=== PATIENT | female | born 1980 | race Caucasian/White ===

== ENCOUNTER → 2017-10-15 | Outpatient (CLI) | payer BC ==
--- NOTE | 2017-10-15 14:24 | CT ---
CT abdomen and pelvis without contrast Indication: Lower back pain, hematuria Technique: Helical CT images of the abdomen and pelvis were obtained without IV contrast. Reformatted images in the coronal and sagittal planes were also generated for review. Comparison: None Findings: Lung bases are clear. No aggressive osseous lesions are identified. Within the limits of a noncontrast exam, the liver, gallbladder, spleen, pancreas and adrenals are un remarkable. There is mild left-sided hydronephrosis, secondary to a 9 mm stone within the left UPJ. A n additional 3 mm nonobstructing stone is present within the inferior left kidney. No additional radi opaque urinary tract stones or right-sided hydroureteronephrosis is identified. There is no bowel inflammation or obstruction. The appendix is normal. The IVC, abdominal aorta and u rinary bladder are normal. A 2.9 cm right ovarian cyst is noted. The unenhanced uterus and adnexa are otherwise grossly within normal limits. No free air, free fluid or lymphadenopathy is identified. Impression: Mild left-sided hydronephrosis, secondary to a 9 mm stone within the left UPJ. Additional 3 mm nonobstructing stone within the inferior left kidney. Reported By:
== END ==
LOC: RAD 13:34
PROVIDERS: ATTEND Nurse Practitioner Family
DX: M54.5 Low back pain (principal); N20.0 Calculus of kidney; R31.21 Asymptomatic microscopic hematuria; Z87.442 Personal history of urinary calculi
CPT/HCPCS: 74176

== ENCOUNTER → 2018-03-15 | Outpatient (CLI) | payer BC ==
--- NOTE | 2018-03-15 14:26 | CT ---
History: Right flank pain, hematuria Study: CT abdomen and pelvis without contrast Findings: [address] imaging is performed from above the diaphragms to below the pubic symphysis without oral or intravenous contrast. Coronal and sagittal reformatted images are submitted as well and comparison made to previous study of 10/15/2017. Lung bases are clear and there are no pleural ef fusions. The liver and spleen are normal in size and uniform in density. The pancreas, gallbladder, a drenal glands and kidneys appear anatomically normal. No renal or ureteral calculi are identified. La rge and small bowel and the appendix appear normal. A 2.8 cm low-density lesion in the right adnexal region is consistent with an ovarian cyst. No free fluid is seen. Impression: Probable right ovarian cyst. Reported By:
== END ==
LOC: RAD 14:00
PROVIDERS: ATTEND Urology
DX: R31.29 Other microscopic hematuria (principal); R10.84 Generalized abdominal pain
CPT/HCPCS: 74176

== ENCOUNTER → 2018-03-25 | Outpatient (CLI) | payer BC ==
--- NOTE | 2018-03-25 09:52 | US ---
HISTORY: Chronic right upper quadrant pain Study: Right upper quadrant abdominal ultrasound Comparison: CT 03/15/2018 Technique: Multiple owens scale and color flow Doppler images of the right upper quadrant were obtaine d. Findings: Liver parenchyma echotexture appears coarsened and slightly hyperechoic suggesting mild fatty infiltr ation. No focal intraparenchymal mass or intrahepatic biliary ductal dilatation is observed. No jenny dence of gallstones. The common bile duct measures 6 mm. No pericholecystic fluid or gallbladder wa ll thickening. No sonographic Ruano's sign reported. The right kidney appears normal in size without focal parenchymal mass or nephrolithiasis. The right kidney measures 13.6 x 6 x 6 cm. No evidence of hydronephrosis. The visualized portions of the rhodes creas are unremarkable. IMPRESSION: 1. Findings suggesting mild fatty infiltration of the liver. 2. Otherwise negative right upper quadrant ultrasound. Reported By:
== END ==
LOC: RAD 08:37
PROVIDERS: ATTEND Nurse Practitioner Family
DX: R10.11 Right upper quadrant pain (principal)
CPT/HCPCS: 76705

== ENCOUNTER 2020-10-26 20:56 | Inpatient (IN) ==
[2020-10-26 21:08] VITALS: BMI 38.4
[2020-10-26] MEDS ORDERED: DECADRON INJ PRESERVATIVE-FREE IVP ONE (21:22)
[2020-10-26] MEDS ORDERED: ZITHROMAX TAB 250 MG PO ONE ×2 (21:22→22:04)
[2020-10-26] MEDS ORDERED: PROVENTIL NEB TX 0.083% 2.5MG/ 3ML NEB ONE (21:32)
[2020-10-26] MEDS ORDERED: DUONEB 0.5 MG/3 MG (3 mL) NEB ONE (21:43)
[2020-10-26] MEDS ORDERED: PROVENTIL NEB TX 0.083% 2.5MG/ 3ML ONE (21:47)
--- NOTE | 2020-10-26 21:50 | RAD ---
PROCEDURE: Chest x-ray one-view.HISTORY: Upper back pain for 1 week with nausea, vomiting, diarrhea today. Hypoxia and fever.TECHNIQUE: AP view .COMPARISON: None .TECHNICAL QUALITY: Satisfactory .FINDINGS:Normal size heart.Mediastinum and hilar regions show no masses or lymphadenopathy.Normal central vascularity.Patchy consolidation throughout both lung pena consistent with pneumonia. No pleural fluid or pneumothorax.No acute bony abnormality.IMPRESSION:Bilateral pneumonia.Electronically signed by: Scott Michelle (Oct 26, 2020 21:48:43)
[2020-10-26 21:52] LABS: BASOPHILS % (AUTO) 0.3 % (0.2-1.0); EOSINOPHILS % (AUTO) 0.1 % (0.9-2.9); HEMATOCRIT 36.3 % (36.0-47.0); LYMPHOCYTES % (AUTO) 17.3 % (21.0-51.0); MEAN CORPUSCULAR HEMOGLOBIN 26.6 pg (27.0-34.0); MEAN CORPUSCULAR HGB CONC 33.1 g/dL (33.0-35.0); MEAN CORPUSCULAR VOLUME 80.3 fL (80.0-100.0); MEAN PLATELET VOLUME 7.2 fL (7.4-11.0); MONOCYTES # (AUTO) 0.3 x10^3/uL (0.3-0.8); MONOCYTES % (AUTO) 5.3 % (0.0-13.0); NEUTROPHILS # (AUTO) 4.3 x10^3/uL (2.2-4.8); PLATELET COUNT 267 X10^3/uL (150.0-450.0); RED BLOOD COUNT 4.53 X10^6/uL (3.5-5.4); RED CELL DISTRIBUTION WIDTH 16.1 % (11.6-16.5); WHITE BLOOD COUNT 5.5 X10^3/uL (3.6-10.0)
[2020-10-26] MEDS ORDERED: NS 1000 ML 1,000 ML IV ONE (21:56)
--- NOTE | 2020-10-26 22:03 | DR.SOBA ---
HPI Time Seen Time Seen by Provider: 10/26/20 21:21 Primary Care Physician Primary Care Physician: jl HPI Comment HPI Comment: Patient presents with complaint of worsening shortness of breath, N/V/D. Notes a COVID+ status and has been on "COVID cocktail" x 1 week. Initially was better, but took a turn on yesterday. Patient notes that she has not tolerated any po. Complaints Chief Complaint:: started last sunday (1 week ago). with uper back pain. now increased nausea vomiting and diarrhea all today. 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 temp up to 101.8 Self Treatment fo Chief Complaint: zofran COVID-19 Coronavirus risk:travel/contact w/high risk person: No Has patient experienced Coronavirus symptoms: No Source History Provided: Patient Mode of Arrival Mode of Arrival: Ambulatory Timing Onset of Chief Complaint: 10/19/20 PMH PMH Past Medical History: Yes Past Medical History: Hypothyroidism Past Surgical History: No Family History History of Family Medical Conditions: Yes Family Medical History: Diabetes Mellitus, Cancer, PR, Coronary Artery Disease and Hypertension Social History Type of Tobacco Use: None Alcohol Use: None Do you use any recreational Drugs:: No Lives With: Family Lives Where: Home Travel Risk Coronavirus risk:travel/contact w/high risk person: No Has patient experienced Coronavirus symptoms: No Infectious screening In the last 2 months have you had wt loss of >10#?: NO Have you had fever, night sweats or hemotysis?: No Have you traveled outside the country in the last 6 months?: No Isolation: Droplet ROS Review of Systems Constitutional: See HPI and Fatigue Respiratoy: Non-Productive Cough and Short of Breath Gastrointestinal/Abdominal: Diarrhea, Nausea and Vomiting All Other Systems: Reviewed and Negative PE Vital Signs Vitals: Temperature 98.6 F Pulse Rate [Left] 103 Pulse Rate 107 Respiratory Rate 22 Blood Pressure [Left Arm] 118/73 Blood Pressure 116/68 O2 Sat by Pulse Oximetry 97 General Limitations: No Limitations General Appearance: Alert and Other (unable to talk in complete sentences) Head Head Exam: Normal Inspection, Atraumatic and Normocephalic Neck Neck Exam: Normal Inspection and Trachea Midline Chest Chest Inspection: Normal Inspection Respiratory Respiratory Exam: Bilateral: Rhonchi Cardiovascular Cardiovascular Exam: Regular Rate, Normal Rhythm and Normal Heart Sounds Abdominal Exam Abdominal Exam: Normal Inspection COURSE Reevaluation 1st: Improved Consultation Call Returned: 23:55 Consultation Comments: Dr. Merritt accepts this patient for admission ROR Labs Reviewed Result Diagrams: 10/26/20 21:36 10/26/20 21:36 Laboratory: WBC 5.5 X10^3/uL (3.6-10.0) 10/26/20 21:36 RBC 4.53 X10^6/uL (3.5-5.4) 10/26/20 21:36 Hgb 12.0 g/dL (12.0-16.0) 10/26/20 21:36 Hct 36.3 % (36.0-47.0) 10/26/20 21:36 MCV 80.3 fL (80.0-100.0) 10/26/20 21:36 MCH 26.6 pg (27.0-34.0) L 10/26/20 21:36 MCHC 33.1 g/dL (33.0-35.0) 10/26/20 21:36 RDW 16.1 % (11.6-16.5) 10/26/20 21:36 Plt Count 267 X10^3/uL (150.0-450.0) 10/26/20 21:36 MPV 7.2 fL (7.4-11.0) L 10/26/20 21:36 Neut % (Auto) 77.0 % (42.0-75.0) H 10/26/20 21:36 Lymph % (Auto) 17.3 % (21.0-51.0) L 10/26/20 21:36 Lyon % (Auto) 5.3 % (0.0-13.0) 10/26/20 21:36 Eos % (Auto) 0.1 % (0.9-2.9) L 10/26/20 21:36 Baso % (Auto) 0.3 % (0.2-1.0) 10/26/20 21:36 Neut # (Auto) 4.3 x10^3/uL (2.2-4.8) 10/26/20 21:36 Lymph # (Auto) 1.0 X10^3/uL (1.3-2.9) L 10/26/20 21:36 Lyon # (Auto) 0.3 x10^3/uL (0.3-0.8) 10/26/20 21:36 Eos # (Auto) 0.0 x10^3/uL (0.0-0.2) 10/26/20 21:36 Baso # (Auto) 0.0 X10^3/uL (0.0-0.1) 10/26/20 21:36 Absolute Nucleated RBC 0.0 /100WBC 10/26/20 21:36 D-Dimer 0.67 ug/ml (0.0-0.57) H* 10/26/20 21:36 Sample Site Rr 10/26/20 21:31 ABG pH 7.500 (7.35-7.45) H 10/26/20 21:31 ABG pCO2 35.0 mmHg (35.0-45.0) 10/26/20 21:31 ABG pO2 51.0 mmHg (80.0-100.0) L 10/26/20 21:31 ABG HCO3 27.3 mmol/L (22-26) H 10/26/20 21:31 ABG O2 Saturation 89.0 % (90-100) L 10/26/20 21:31 ABG Base Excess 4.2 mmol/L (-2.0-2.0) H 10/26/20 21:31 Ramirez Test Pos 10/26/20 21:31 A-a Gradient 105.0 mmHg 10/26/20 21:31 FiO2 28.0 10/26/20 21:31 Blood Gas Comments Mariano well sw 10/26/20 21:31 Sodium 136 mmol/L (136-145) 10/26/20 21:36 Corrected Sodium TNP 10/26/20 21:36 Potassium 2.8 mmol/L (3.5-5.1) L* 10/26/20 21:36 Chloride 99 mmol/L (98-107) 10/26/20 21:36 Carbon Dioxide 28.2 mmol/L (21-32) 10/26/20 21:36 BUN 6 mg/dL (7-18) L 10/26/20 21:36 Creatinine 0.76 mg/dL (0.55-1.02) 10/26/20 21:36 Est GFR (MDRD) Af Amer > 60 (>60) 10/26/20 21:36 Est GFR (MDRD) Non-Af > 60 (>60) 10/26/20 21:36 Glucose 107 mg/dL (65-99) H 10/26/20 21:36 Calcium 8.4 mg/dL (8.5-10.1) L 10/26/20 21:36 Corrected Calcium 9.4 mg/dL (8.5-10.1) 10/26/20 21:36 Total Bilirubin 0.30 mg/dL (0.2-1.0) 10/26/20 21:36 AST 37 Units/L (15-37) 10/26/20 21:36 ALT 42 Units/L (12-78) 10/26/20 21:36 Alkaline Phosphatase 57 Units/L (46-116) 10/26/20 21:36 Creatine Kinase 36 Units/L (26-192) 10/26/20 21:36 CK-MB (CK-2) < 1.0 ng/mL (0-4.0) 10/26/20 21:36 CK/CKMB % Calc 2.8 % (<4) 10/26/20 21:36 Troponin I < 0.02 ng/mL (0-1.5) 10/26/20 21:36 C-Reactive Protein 142.60 mg/L (0-3.0) H 10/26/20 21:36 Total Protein 7.1 g/dL (6.4-8.2) 10/26/20 21:36 Albumin 2.8 g/dL (3.4-5.0) L 10/26/20 21:36 Globulin 4.3 g/dL (2.5-4.5) 10/26/20 21:36 Albumin/Globulin Ratio 0.7 Ratio (1.1-2.1) L 10/26/20 21:36 Influenza Type A (PCR) Negative (NEGATIVE) 10/26/20 21:41 Influenza Type B (PCR) Negative (NEGATIVE) 10/26/20 21:41 SARS CoV-2 RNA Rapid MYRON Positive (NEGATIVE) A 10/26/20 21:41 Opioid Opioid Risk Tool Age (Ramos box if 16-45): Yes History of Preadolescent Sexual Abuse: No Total: 1 Total Score Risk Category: Low Risk Copyright: Rob KERR predicting aberrant behaviors Diagnosis Discharge Problem: Pneumonia due to 2019 novel coronavirus
[2020-10-26 22:04] LABS: ABG ALLEN TEST POS; ABG BASE EXCESS 4.2 mmol/L (-2.0-2.0); ABG HCO3 27.3 mmol/L (22-26)
[2020-10-26] MEDS ORDERED: NS 1000 ML 1,000 ML ONE (22:04)
[2020-10-26] MEDS ORDERED: DECADRON INJ ONE (22:05)
[2020-10-26 22:11] LABS: ALANINE AMINOTRANSFERASE 42 Units/L (12-78); ALBUMIN 2.8 g/dL (3.4-5.0); ALKALINE PHOSPHATASE 57 Units/L (46-116); ASPARTATE AMINO TRANSFERASE 37 Units/L (15-37); BLOOD UREA NITROGEN 6 mg/dL (7-18); CALCIUM 8.4 mg/dL (8.5-10.1); CARBON DIOXIDE 28.2 mmol/L (21-32); CHLORIDE 99 mmol/L (98-107); CKMB % 2.8 % (<4); COR CA(FOR HYPOALB) 9.4 mg/dL (8.5-10.1); CREATINE KINASE 36 Units/L (26-192); CREATINE KINASE MB < 1.0 ng/mL (0-4.0); CREATININE 0.76 mg/dL (0.55-1.02); SODIUM 136 mmol/L (136-145); TOTAL PROTEIN 7.1 g/dL (6.4-8.2); TROPONIN I < 0.02 ng/mL (0-1.5); eGFR NON BLACK RACES > 60 (>60)
[2020-10-26] MEDS ORDERED: ZOFRAN INJ 4 MG VIAL ONE (22:13)
[2020-10-26] MEDS ORDERED: ZOFRAN INJ 4 MG VIAL IVP ONE (22:26)
[2020-10-26] MEDS ORDERED: NS 100 ML IV 100 ML IV ONE (22:41)
--- NOTE | 2020-10-26 23:27 | CT ---
HISTORYstarted last sunday (1 week ago). with uper back pain. now increased nausea vomiting and diarrhea all today. 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 temp up to 101.8STUDYCTA CHESTCOMPARISONNoneTECHNIQUEMultiple axial images of the chest were obtained from the thoracic inlet to the upper abdomen after the administration of IV contrast 3D reconstructions utilizing axial MIPS imaging was performed and reviewed. Dose reduction techniques including Automated Exposure Control (AEC) and adjustment of mA and kV were utilized.FINDINGSPulmonary arteries: There is no central filling defects of the pulmonary arterial system to suggest acute pulmonary emboli. Limited assessment of segmental and subsegmental pulmonary arteries due to motion degradation.Mediastinum: Mild mediastinal and hilar adenopathy with paratracheal lymph nodes measuring up to 10 mm in short axis. Right hilar lymph nodes measuring 1.3 cm in short axis. Heart size is within normal limits. Trace pericardial effusion versus pericardial thickening. The thoracic aorta is normal in its contour without evidence for aneurysmal dilatation.Lungs: Patchy bilateral ground-glass opacities throughout the lung pena. No pleural effusion or pneumothorax. The central airway is grossly patent.Chest wall: No axillary adenopathy.Bones: No aggressive osseus lesion or acute fracture.Upper abdomen: Liver appears enlarged. Diffuse hepatic steatosis..IMPRESSIONNo evidence of acute central pulmonary emboli.Limited assessment of segmental and subsegmental pulmonary arteries due to motion degradation.Bilateral patchy ground-glass opacities throughout the lung pena, a pattern that is suggestive of COVID-19 pneumonia. Correlation with COVID testing is recommended.Hepatomegaly and diffuse hepatic steatosis.Electronically signed by: Ngozi Phillips (Oct 26, 2020 23:25:50)
[2020-10-27] MEDS ORDERED: ULTRAM PO PRN (00:28)
[2020-10-27] MEDS ORDERED: ZOFRAN TAB 4 MG PO PRN (00:28)
[2020-10-27] MEDS ORDERED: PROVENTIL NEB TX 0.083% 2.5MG/ 3ML NEB SCH (00:28)
[2020-10-27] MEDS ORDERED: PROVENTIL NEB TX 0.083% 2.5MG/ 3ML ONE (00:42)
[2020-10-27] MEDS ORDERED: REMDESIVIR 200 MG in NS 250 ML IV 250 ML IV SCH (01:00)
[2020-10-27] MEDS: NS 1000 ML 1,000 ML IV SCH ×2 (01:19→03:26)
[2020-10-27] MEDS ORDERED: KLOR-CON PO PRN (01:35)
[2020-10-27] MEDS ORDERED: MICRO K EXTEN CAP 10 MEQ PO PRN (01:35)
[2020-10-27] MEDS ORDERED: POTASSIUM CHL 60 MEQ/NS 0.45% 500 ML IV PRN (01:35)
[2020-10-27] MEDS ORDERED: POTASSIUM CHL 40 MEQ/NS 0.45% 500 ML IV PRN (01:35)
[2020-10-27] MEDS ORDERED: POTASSIUM CHLORIDE LIQ 20 MEQ UDC PO PRN (01:35)
[2020-10-27] MEDS ORDERED: K-RIDER 10 MEQ/NS 100 ML 10 MEQ/100 ML BAG IV PRN (01:35)
[2020-10-27] MEDS: K-DUR TAB 20 MEQ PO PRN (02:15)
[2020-10-27] MEDS: ASCORBIC ACID INJ MULTI-DOSE VIAL 1,500 MG in NS 100 ML IV 100 ML IV SCH ×4 (02:15→20:49)
[2020-10-27 05:44] LABS: BASOPHILS % (AUTO) 0.1 % (0.2-1.0); HEMATOCRIT 35.4 % (36.0-47.0); HEMOGLOBIN 11.7 g/dL (12.0-16.0); LYMPHOCYTES # (AUTO) 0.5 X10^3/uL (1.3-2.9); LYMPHOCYTES % (AUTO) 11.7 % (21.0-51.0); MEAN CORPUSCULAR HEMOGLOBIN 26.5 pg (27.0-34.0); MEAN CORPUSCULAR HGB CONC 33.1 g/dL (33.0-35.0); MEAN CORPUSCULAR VOLUME 80.1 fL (80.0-100.0); MEAN PLATELET VOLUME 7.6 fL (7.4-11.0); MONOCYTES # (AUTO) 0.1 x10^3/uL (0.3-0.8); NEUTROPHILS % (AUTO) 85.2 % (42.0-75.0); PLATELET COUNT 254 X10^3/uL (150.0-450.0); RED BLOOD COUNT 4.42 X10^6/uL (3.5-5.4); RED CELL DISTRIBUTION WIDTH 15.9 % (11.6-16.5); WHITE BLOOD COUNT 4.7 X10^3/uL (3.6-10.0)
[2020-10-27 05:54] LABS: ALANINE AMINOTRANSFERASE 39 Units/L (12-78); ALBUMIN 2.7 g/dL (3.4-5.0); ALKALINE PHOSPHATASE 53 Units/L (46-116); ASPARTATE AMINO TRANSFERASE 32 Units/L (15-37); BLOOD UREA NITROGEN 5 mg/dL (7-18); CALCIUM 8.3 mg/dL (8.5-10.1); CARBON DIOXIDE 25.3 mmol/L (21-32); CHLORIDE 103 mmol/L (98-107); COR CA(FOR HYPOALB) 9.3 mg/dL (8.5-10.1); COR NA(FOR HYPERGLY) 143 mmol/L (136-145); CREATININE 0.69 mg/dL (0.55-1.02); MAGNESIUM 1.8 mg/dL (1.7-2.9); SODIUM 141 mmol/L (136-145); TROPONIN I < 0.02 ng/mL (0-1.5); eGFR NON BLACK RACES > 60 (>60)
[2020-10-27] MEDS ORDERED: MAGNESIUM SULFATE 1 GRAM/100 mL PREMIX 1 GM/100 ML BAG IV PRN (07:07)
[2020-10-27] MEDS ORDERED: DECADRON TAB PO SCH (09:00)
[2020-10-27] MEDS ORDERED: VIBRAMYCIN PO SCH (09:00)
[2020-10-27] MEDS ORDERED: VITAMIN A PO SCH (09:00)
[2020-10-27] MEDS ORDERED: VITAMIN D (1.25MG) PO SCH (09:00)
[2020-10-27] MEDS: PROVENTIL NEB TX 0.083% 2.5MG/ 3ML NEB SCH ×2 (10:30→14:10)
[2020-10-27] MEDS: ZINC SULFATE PO SCH ×2 (10:36→20:56)
[2020-10-27] MEDS: LIPITOR TAB 40 MG PO SCH (10:36)
[2020-10-27] MEDS: PEPCID TAB 20 MG PO SCH ×3 (10:36→21:31)
[2020-10-27] MEDS: TOPROL XL PO SCH (10:38)
[2020-10-27] MEDS: GLUCOPHAGE PO SCH ×2 (10:51→21:30)
[2020-10-27] MEDS: LOVENOX INJ 30 MG SYR SC SCH ×2 (10:52→20:56)
[2020-10-27] MEDS: TRICOR TAB 160 MG PO SCH (10:53)
[2020-10-27] MEDS: SYNTHROID 150 mcg TAB PO SCH ×2 (14:24→17:46)
--- NOTE | 2020-10-27 14:50 | DR.H&P ---
H&P - History & Physical for Day of: H&P Date: 10/27/20 - Chief Complaint Chief Complaint: COUGH, SOB, FEVER, NAUSEA, DIARRHEA, COVID POSITIVE - History of Present Illness History of Present Illness: IS A 40 YEAR OLD PATIENT OF PAT [employer]. SHE PRESENTED TO THE HOSPTIAL WITH COMPLAINTS OF SHORTNESS OF BREATH, COUGH, FEVER, VOMITING, LOOSE STOOLS, AND GENERALIZED WEAKNESS. HER SYMPTOMS REPORTEDLY STARTED ABOUT A WEEK AGO. SHE WAS TESTED FOR COVID ON 10/22/20. SHE WAS POSITIVE. AT THAT TIME, SHE WAS STARTED ON LEVAQUIN 500MG PO DAILY, AZITHROMYCIN 500MG PO X 3, PLAQUENIL 200MG PO BID X 10 DAYS, A MEDROL DOSEPAK, NEB TREATMENTS, AND COUGH MEDICATION. SHE REPORTS WORSENING IN SYMPTOMS DESPITE COMPLIANCE WITH MEDICATIONS. SHE REPORTS THAT HER OXYGEN SATURATIONS PRIOR TO ARRIVAL TO THE ER WERE IN THE 70s. HER PMH INCLUDES HYPERTENSION, PCOS, KIDNEY STONES, HYPOTHYROIDISM, THYROIDECTOMY, AND LITHOTRIPSY. ON ARRIVAL TO THE ER, VITALS WERE 98.6-107-28-87%RA-116/68. LABS WERE OBTAINED. ABNORMAL LAB VALUES INCLUDE THE FOLLOWING: D-DIMER 0.67, POTASSIUM 2.8, BUN 6, GLUCOSE 107, CALCIUM 8.4, CRP 142.60, ALBUMIN 2.8. COVID 19 POSITIVE. AN ABG WAS OBTAINED AND REVEALED: PH 7.500, P02 35, P02 51, HC03 27.3, 02 SAT 89, BASE EXCESS 4.2, FI02 28. BLOOD CULTURES WERE SET UP. A CHEST XRAY WAS OBTAINED AND REVEALED BILATERAL PNEUMONIA. A CHEST CTA WAS OBTAINED AND REVEALED: evidence of acute central pulmonary emboli. Limited assessment of segmental and subsegmental pulmonary arteries due to motion degradation. Bilateral patchy ground-glass opacities throughout the lung pena, a pattern that is suggestive of COVID-19 pneumonia. Correlation with COVID testing is recommended. Hepatomegaly and diffuse hepatic steatosis. EKG REVEALED: SINUS RHYTHM WITH HR 97. SHE WAS PLACED ON OXYGEN VIA NASAL CANNULA AT 2 LPM. SATURATIONS INCREASED TO THE 90s. IN THE ER, SHE WAS GIVEN DECADRON 10MG IV X 1, AZITHROMYCIN 500MG PO X 1, A PROVENTIL NEB TX, A NORMAL SALINE BOLUS, ZOFRAN 4MG IV X 1, AND REMDESIVIR 200MG IV X 1. SHE WAS ADMITTED TO THE HOSPITAL FOR FURTHER EVALUATION AND TREATMENT OF PNEUMONIA DUE TO COVID-19 AND HYPOXIA. SHE WAS STARTED ON NS AT KVO, LEVAQUIN 500MG IV DAILY, SOLU-MEDROL 80MG IV Q8H, REMDESIVIR 100MG IV DAILY, DUONEBS QID, PULMICORT NEBS BID, LOVENOX 30MG SC BID, PEPCID 20MG PO BID, ZINC SULFATE 220MG PO BID, TRICOR 160MG PO DAILY, AND HER HOME MEDICATIONS WERE RESUMED. OTHERWISE, WE PLAN TO FOLLOW UP WITH AM LABS, CHEST XRAY, ABG, AND CONTINUE TO MONITOR. TIME SPENT ON CLINICAL ASSESSMENT, REVIEWING LABS AND IMAGING, DECISION MAKING, AND DOCUMENTATION GREATER THAN 75 MINUTES. - Past Medical History Past Medical History: Hypertension, Hypothyroidism, Kidney Stones Additional Medical History: PCOS - Past Surgical History Surgical History: Thyroidectomy, Lithotripsy - Family History Family Medical History: Diabetes Mellitus, Cancer, Coronary Artery Disease, Hypertension - Social History Does patient currently use any type of tobacco product: No Type of Tobacco Use: None Alcohol Use: None Drug Use: None - Medications Home Medications: No Known Drug Allergies Allergy (Verified 10/26/20 21:03) CONTINUE taking the following medications albuterol sulfate 2.5 mg INHALATION QID 10/26/20 [History] budesonide 0.5 mg INHALATION BID 10/26/20 [History] esomeprazole magnesium 40 mg PO HS 10/26/20 [History] famotidine 20 mg PO BID 10/26/20 [History] hydroxychloroquine 200 mg PO BID 10/26/20 [History] levothyroxine [Synthroid] 300 mcg PO DAILY 10/26/20 [History] metformin 850 mg PO BID 10/26/20 [History] metoprolol succinate 50 mg PO DAILY 10/26/20 [History] ondansetron HCl 4 mg PO Q4H PRN 10/26/20 [History] promethazine 25 mg PO Q4H PRN 10/26/20 [History] tramadol 50 mg PO TID PRN 10/26/20 [History] fluoxetine 20 mg PO DAILY 10/27/20 [History] levofloxacin 500 mg PO DAILY 10/27/20 [History] liothyronine 5 mcg PO BID 10/27/20 [History] lisdexamfetamine [Vyvanse] 50 mg PO DAILY 10/27/20 [History] methylprednisolone 4 mg PO . DIRECTED 10/27/20 [History] tamsulosin 0.4 mg PO DAILY 10/27/20 [History] - Review of Systems Constitutional: Fever, Weakness Eyes: No Symptoms Reported ENT: No Symptoms Reported Respiratory: See HPI, Cough, Shortness of Breath, SOB with Excertion, Wheezing Cardiovascular: No Symptoms Reported Gastrointestinal: See HPI, Nausea, Vomiting, Diarrhea Genitourinary: No Symptoms Reported Musculoskeletal: No Symptoms Reported Skin: No Symptoms Reported Neurological: Weakness - Physical Exam Vital Signs: Temperature 97.9 F Pulse Rate [Left] 100 Pulse Rate 94 Respiratory Rate 18 Blood Pressure [Left Arm] 118/61 Blood Pressure 119/74 O2 Sat by Pulse Oximetry 91 Oriented: Normal Eyes: Normal Ear: Normal Nose: Normal Throat: Normal Respiratory: Wheezes Throughout Cardiovascular: Normal : Normal Auscultation: Bowel Sounds: Normal Palpation: Normal Tenderness: Normal Skin: Normal Musculoskeletal: Normal Psychiatric: Normal Mood Description: Calm Affect: Normal Speech Pattern: Clear - Assessment/Plan (1) Pneumonia due to 2019 novel coronavirus Status: Acute Plan: NS AT [facility], LEVAQUIN 500MG IV DAILY, SOLU-MEDROL 80MG IV Q8H, REMDESIVIR 100MG IV DAILY, DUONEBS QID, PULMICORT NEBS BID, LOVENOX 30MG SC BID, PEPCID 20MG PO BID, ZINC SULFATE 220MG PO BID, TRICOR 160MG PO DAILY, AND HER HOME MEDICATIONS WERE RESUMED. (2) Hypoxia Status: Acute - Allergies Allergies/Adverse Reactions: Allergies Allergy/AdvReac Type Severity Reaction Status Date / Time No Known Drug Allergies Allergy Verified 10/26/20 21:03
[2020-10-27] MEDS ORDERED: HumuLIN R SUBCUT PRN (15:38)
[2020-10-27] MEDS: SOLU-Medrol 40 MG VIAL IVP SCH ×2 (16:02→21:29)
[2020-10-27] MEDS: LEVAQUIN PREMIX IV 500 MG 500 MG/100 ML BAG IV SCH (16:02)
[2020-10-27] MEDS: DUONEB 0.5 MG/3 MG (3 mL) NEB SCH ×2 (18:42→21:10)
[2020-10-27] MEDS: SNACK - Diabetic Appropriate PO SCH (21:00)
[2020-10-27] MEDS: PULMICORT NEB TX 0.5 MG NEB SCH (21:10)
[2020-10-28] MEDS: NS 1000 ML 1,000 ML IV SCH ×2 (01:00→21:55)
[2020-10-28] MEDS: ASCORBIC ACID INJ MULTI-DOSE VIAL 1,500 MG in NS 100 ML IV 100 ML IV SCH ×4 (04:00→21:55)
[2020-10-28 05:40] LABS: BASOPHILS % (AUTO) 0.1 % (0.2-1.0); HEMATOCRIT 34.8 % (36.0-47.0); HEMOGLOBIN 11.5 g/dL (12.0-16.0); LYMPHOCYTES # (AUTO) 0.7 X10^3/uL (1.3-2.9); LYMPHOCYTES % (AUTO) 13.3 % (21.0-51.0); MEAN CORPUSCULAR HEMOGLOBIN 26.5 pg (27.0-34.0); MEAN CORPUSCULAR HGB CONC 33.1 g/dL (33.0-35.0); MEAN CORPUSCULAR VOLUME 80.1 fL (80.0-100.0); MEAN PLATELET VOLUME 7.7 fL (7.4-11.0); MONOCYTES # (AUTO) 0.4 x10^3/uL (0.3-0.8); MONOCYTES % (AUTO) 7.7 % (0.0-13.0); NEUTROPHILS # (AUTO) 4.2 x10^3/uL (2.2-4.8); NEUTROPHILS % (AUTO) 78.9 % (42.0-75.0); PLATELET COUNT 323 X10^3/uL (150.0-450.0); RED BLOOD COUNT 4.35 X10^6/uL (3.5-5.4); WHITE BLOOD COUNT 5.4 X10^3/uL (3.6-10.0)
[2020-10-28 05:47] LABS: ABG ALLEN TEST POS; ABG HCO3 25.5 mmol/L (22-26)
[2020-10-28] MEDS: REMDESIVIR 100 MG in NS 250 ML IV 250 ML IV SCH (05:49)
[2020-10-28] MEDS: SOLU-Medrol 40 MG VIAL IVP SCH ×3 (05:49→21:55)
[2020-10-28 05:54] LABS: ALANINE AMINOTRANSFERASE 44 Units/L (12-78); ALBUMIN 2.6 g/dL (3.4-5.0); ALKALINE PHOSPHATASE 48 Units/L (46-116); ASPARTATE AMINO TRANSFERASE 37 Units/L (15-37); BLOOD UREA NITROGEN 10 mg/dL (7-18); CALCIUM 8.1 mg/dL (8.5-10.1); CHLORIDE 106 mmol/L (98-107); COR CA(FOR HYPOALB) 9.2 mg/dL (8.5-10.1); COR NA(FOR HYPERGLY) 144 mmol/L (136-145); CREATININE 0.59 mg/dL (0.55-1.02); MAGNESIUM 2.1 mg/dL (1.7-2.9); SODIUM 143 mmol/L (136-145); TOTAL PROTEIN 6.8 g/dL (6.4-8.2); eGFR NON BLACK RACES > 60 (>60)
--- NOTE | 2020-10-28 06:43 | RAD ---
HISTORYShortness of breathSTUDYChest AP [id number]/2020FINDINGSThe heart is within normal limits in size. The krysta are normal. The lungs remain hypoinflated. Bilateral interstitial and ground-glass infiltrates are unchanged. No pleural effusions are identified. Bony thorax is unremarkable.IMPRESSIONNo change hypo inflationNo change bilateral interstitial and ground-glass infiltratesElectronically signed by: CATHRYN TAYLOR (Oct 28, 2020 06:41:17)
[2020-10-28] MEDS ORDERED: VITAMIN A PO SCH (09:00)
[2020-10-28] MEDS: PULMICORT NEB TX 0.5 MG NEB SCH ×2 (09:38→21:05)
[2020-10-28] MEDS: DUONEB 0.5 MG/3 MG (3 mL) NEB SCH ×4 (09:38→21:05)
[2020-10-28] MEDS: PEPCID TAB 20 MG PO SCH ×2 (10:00→21:55)
[2020-10-28] MEDS: TOPROL XL PO SCH (10:00)
[2020-10-28] MEDS: K-DUR TAB 20 MEQ PO PRN (10:00)
[2020-10-28] MEDS: VITAMIN D3 125 mcg (5,000 UNITS) PO SCH (10:00)
[2020-10-28] MEDS: GLUCOPHAGE PO SCH (10:00)
[2020-10-28] MEDS: ZINC SULFATE PO SCH ×2 (11:13→21:55)
[2020-10-28] MEDS: LEVAQUIN PREMIX IV 500 MG 500 MG/100 ML BAG IV SCH (11:15)
[2020-10-28] MEDS: LIPITOR TAB 40 MG PO SCH (11:16)
[2020-10-28] MEDS: LOVENOX INJ 30 MG SYR SC SCH ×2 (11:16→21:55)
[2020-10-28] MEDS: TRICOR TAB 160 MG PO SCH (14:41)
[2020-10-28] MEDS ORDERED: AMBIEN PO PRN (14:49)
[2020-10-28] MEDS: SYNTHROID 150 mcg TAB PO SCH (17:54)
[2020-10-28] MEDS: SNACK - Diabetic Appropriate PO SCH (20:38)
[2020-10-29] MEDS: GLUCOPHAGE PO SCH ×3 (00:33→21:54)
[2020-10-29] MEDS: ASCORBIC ACID INJ MULTI-DOSE VIAL 1,500 MG in NS 100 ML IV 100 ML IV SCH ×4 (03:35→21:36)
[2020-10-29 04:39] LABS: ABG ALLEN TEST POS; ABG BASE EXCESS 1.7 mmol/L (-2.0-2.0); ABG HCO3 25.8 mmol/L (22-26)
[2020-10-29] MEDS: SOLU-Medrol 40 MG VIAL IVP SCH ×3 (05:21→21:36)
[2020-10-29 06:22] LABS: BASOPHILS % (AUTO) 0 % (0.2-1.0); HEMATOCRIT 33.5 % (36.0-47.0); HEMOGLOBIN 11.2 g/dL (12.0-16.0); LYMPHOCYTES # (AUTO) 0.8 X10^3/uL (1.3-2.9); LYMPHOCYTES % (AUTO) 10.9 % (21.0-51.0); MEAN CORPUSCULAR HGB CONC 33.4 g/dL (33.0-35.0); MEAN CORPUSCULAR VOLUME 80.9 fL (80.0-100.0); MEAN PLATELET VOLUME 7.6 fL (7.4-11.0); MONOCYTES # (AUTO) 0.7 x10^3/uL (0.3-0.8); MONOCYTES % (AUTO) 9.5 % (0.0-13.0); NEUTROPHILS # (AUTO) 5.9 x10^3/uL (2.2-4.8); NEUTROPHILS % (AUTO) 79.6 % (42.0-75.0); PLATELET COUNT 359 X10^3/uL (150.0-450.0); RED BLOOD COUNT 4.14 X10^6/uL (3.5-5.4); RED CELL DISTRIBUTION WIDTH 16.3 % (11.6-16.5); WHITE BLOOD COUNT 7.4 X10^3/uL (3.6-10.0)
[2020-10-29 06:42] LABS: ALANINE AMINOTRANSFERASE 58 Units/L (12-78); ALBUMIN 2.6 g/dL (3.4-5.0); ALKALINE PHOSPHATASE 42 Units/L (46-116); ASPARTATE AMINO TRANSFERASE 48 Units/L (15-37); BLOOD UREA NITROGEN 15 mg/dL (7-18); CALCIUM 7.9 mg/dL (8.5-10.1); CARBON DIOXIDE 24.6 mmol/L (21-32); CHLORIDE 107 mmol/L (98-107); COR NA(FOR HYPERGLY) 145 mmol/L (136-145); CREATININE 0.75 mg/dL (0.55-1.02); SODIUM 144 mmol/L (136-145); TOTAL PROTEIN 6.5 g/dL (6.4-8.2); eGFR NON BLACK RACES > 60 (>60)
--- NOTE | 2020-10-29 07:13 | RAD ---
HISTORYSOBSTUDYCHEST, 1 [id number]/24/2020FINDINGSStable cardiomediastinal silhouette. Patchy bilateral multifocal pulmonary opacities appear not significantly changed. No sizable effusion or visible pneumothorax. No acute osseous finding.IMPRESSIONNo significant interval change.Electronically signed by: Thiago Em (Oct 29, 2020 07:11:53)
[2020-10-29] MEDS: PULMICORT NEB TX 0.5 MG NEB SCH ×2 (09:46→21:30)
[2020-10-29] MEDS: DUONEB 0.5 MG/3 MG (3 mL) NEB SCH ×4 (09:46→21:30)
[2020-10-29] MEDS: LEVAQUIN PREMIX IV 500 MG 500 MG/100 ML BAG IV SCH (10:03)
[2020-10-29] MEDS: LOVENOX INJ 30 MG SYR SC SCH ×2 (10:03→21:38)
[2020-10-29] MEDS: ZINC SULFATE PO SCH ×2 (10:05→21:39)
[2020-10-29] MEDS: REMDESIVIR 100 MG in NS 250 ML IV 250 ML IV SCH (10:05)
[2020-10-29] MEDS: VITAMIN D3 125 mcg (5,000 UNITS) PO SCH (10:05)
[2020-10-29] MEDS: TRICOR TAB 160 MG PO SCH (10:06)
[2020-10-29] MEDS: TOPROL XL PO SCH (10:06)
[2020-10-29] MEDS: PEPCID TAB 20 MG PO SCH ×2 (10:32→21:39)
--- NOTE | 2020-10-29 12:28 | PCM.PROG ---
Progress Note Progress Note for Day of Date of Exam: 10/29/20 Subjective Subjective: PT IS A 40 YEAR OLD FEMALE ADMITTED FOR COVID-19 PNEUMONIA AND HYPOXIA (POSITIVE 10/26). THIS MORNING SHE DOES REPORT MINIMAL IMPROVEMENT IN HER BREATHING. NO ACUTE EVENTS OVERNIGHT. LABS/IMAGING: WBC 7.4, HGB 11.2, PLT 359, NA 144, K 3.5, CR 0.75, GLUCOSE 153, CRP 58>19. CXR:NO SIGNIFICANT INTERVAL CHANGE. HER TREATMENT COURSE INCLUDES: NS AT KVO, LEVAQUIN 500MG IV DAILY, SOLU- MEDROL 80MG IV Q8H, REMDESIVIR 100MG IV DAILY, DUONEBS QID, PULMICORT NEBS BID, LOVENOX 30MG SC BID, PEPCID 20MG PO BID, ZINC SULFATE 220MG PO BID, TRICOR 160MG PO DAILY, AND HER HOME MEDICATIONS WERE RESUMED. SHE IS CURRENTLY REQUIRING SUPPLEMENTAL O2 OF 3L NASAL CANNULA. ATTEMPT TO WEAN TOLERATED. WILL CONTINUE PLAN OF CARE. CONTINUE TO MONITOR CLOSELY AND FOLLOW UP LABS/IMAGING IN THE MORNING. Past Medical Family Social History Past Med/Fam/Surg Hx: No changes since H&P Allergies: Allergies No Known Drug Allergies Allergy (Verified 10/26/20 21:03) Review of Systems ROS: No change since H&P Vital Signs and I&O's Vital Signs: Temperature 97.8 F Pulse Rate [Left] 67 Pulse Rate 77 Respiratory Rate 24 Blood Pressure [Left Arm] 118/69 Blood Pressure 119/74 O2 Sat by Pulse Oximetry 95 Intake and Output: Intake & Output 10/26/20 10/27/20 10/28/20 10/29/20 23:59 23:59 23:59 23:59 Intake Total 2132 / 2322 50 / 50 Balance 2132 50 / 50 Physical Exam Oriented: Normal Eyes: Normal Ear: Normal Nose: Normal Throat: Normal Respiratory: Diminished Cardiovascular: Normal : Normal Auscultation: Bowel Sounds: Normal Tenderness: Normal Skin: Normal Musculoskeletal: Normal Psychiatric: Normal Mood Description: Calm Affect: Normal Speech Pattern: Clear and Appropriate Laboratory and Diagnostics Result Diagrams: 10/29/20 05:17 10/29/20 05:17 Labs: 10/28/20 14:20 Sputum - Expectorated Sputum Sputum Culture - Preliminary 10/28/20 14:20 Sputum - Expectorated Sputum - Final 10/26/20 21:42 Blood Blood Culture - Preliminary 10/26/20 21:36 Blood Blood Culture - Preliminary Laboratory WBC 7.4 X10^3/uL (3.6-10.0) 10/29/20 05:17 RBC 4.14 X10^6/uL (3.5-5.4) 10/29/20 05:17 Hgb 11.2 g/dL (12.0-16.0) L 10/29/20 05:17 Hct 33.5 % (36.0-47.0) L 10/29/20 05:17 MCV 80.9 fL (80.0-100.0) 10/29/20 05:17 MCH 27.0 pg (27.0-34.0) 10/29/20 05:17 MCHC 33.4 g/dL (33.0-35.0) 10/29/20 05:17 RDW 16.3 % (11.6-16.5) 10/29/20 05:17 Plt Count 359 X10^3/uL (150.0-450.0) 10/29/20 05:17 MPV 7.6 fL (7.4-11.0) 10/29/20 05:17 Neut % (Auto) 79.6 % (42.0-75.0) H 10/29/20 05:17 Lymph % (Auto) 10.9 % (21.0-51.0) L 10/29/20 05:17 [place] % (Auto) 9.5 % (0.0-13.0) 10/29/20 05:17 Eos % (Auto) 0.0 % (0.9-2.9) L 10/29/20 05:17 Baso % (Auto) 0 % (0.2-1.0) L 10/29/20 05:17 Neut # (Auto) 5.9 x10^3/uL (2.2-4.8) H 10/29/20 05:17 Lymph # (Auto) 0.8 X10^3/uL (1.3-2.9) L 10/29/20 05:17 [place] # (Auto) 0.7 x10^3/uL (0.3-0.8) 10/29/20 05:17 Eos # (Auto) 0.0 x10^3/uL (0.0-0.2) 10/29/20 05:17 Baso # (Auto) 0.0 X10^3/uL (0.0-0.1) 10/29/20 05:17 Absolute Nucleated RBC 0.1 /100WBC 10/29/20 05:17 D-Dimer 0.67 ug/ml (0.0-0.57) H* 10/26/20 21:36 Sample Site Rr 10/29/20 04:34 ABG pH 7.440 (7.35-7.45) 10/29/20 04:34 ABG pCO2 38.0 mmHg (35.0-45.0) 10/29/20 04:34 ABG pO2 78.0 mmHg (80.0-100.0) L 10/29/20 04:34 ABG HCO3 25.8 mmol/L (22-26) 10/29/20 04:34 ABG O2 Saturation 96.0 % (90-100) 10/29/20 04:34 ABG Base Excess 1.7 mmol/L (-2.0-2.0) 10/29/20 04:34 Ramirez Test Pos 10/29/20 04:34 A-a Gradient 117.0 mmHg 10/29/20 04:34 FiO2 34.0 10/29/20 04:34 Blood Gas Comments Mariano well ae 10/29/20 04:34 Sodium 144 mmol/L (136-145) 10/29/20 05:17 Corrected Sodium 145 mmol/L (136-145) 10/29/20 05:17 Potassium 3.5 mmol/L (3.5-5.1) 10/29/20 05:17 Chloride 107 mmol/L (98-107) 10/29/20 05:17 Carbon Dioxide 24.6 mmol/L (21-32) 10/29/20 05:17 BUN 15 mg/dL (7-18) 10/29/20 05:17 Creatinine 0.75 mg/dL (0.55-1.02) 10/29/20 05:17 Est GFR (MDRD) Af Amer > 60 (>60) 10/29/20 05:17 Est GFR (MDRD) Non-Af > 60 (>60) 10/29/20 05:17 Glucose 153 mg/dL (65-99) H 10/29/20 05:17 POC Glucose (mg/dL) 141 mg/dL (65-99) H 10/29/20 11:18 Calcium 7.9 mg/dL (8.5-10.1) L 10/29/20 05:17 Corrected Calcium 9.0 mg/dL (8.5-10.1) 10/29/20 05:17 Magnesium 2.1 mg/dL (1.7-2.9) 10/28/20 04:49 Total Bilirubin 0.20 mg/dL (0.2-1.0) 10/29/20 05:17 AST 48 Units/L (15-37) H 10/29/20 05:17 ALT 58 Units/L (12-78) 10/29/20 05:17 Alkaline Phosphatase 42 Units/L (46-116) L 10/29/20 05:17 Creatine Kinase 36 Units/L (26-192) 10/26/20 21:36 CK-MB (CK-2) < 1.0 ng/mL (0-4.0) 10/26/20 21:36 CK/CKMB % Calc 2.8 % (<4) 10/26/20 21:36 Troponin I < 0.02 ng/mL (0-1.5) 10/27/20 04:45 C-Reactive Protein 19.10 mg/L (0-3.0) H 10/29/20 05:17 Total Protein 6.5 g/dL (6.4-8.2) 10/29/20 05:17 Albumin 2.6 g/dL (3.4-5.0) L 10/29/20 05:17 Globulin 3.9 g/dL (2.5-4.5) 10/29/20 05:17 Albumin/Globulin Ratio 0.7 Ratio (1.1-2.1) L 10/29/20 05:17 TSH 3rd Generation 0.560 uIU/mL (0.358-3.74) 10/29/20 05:17 Influenza Type A (PCR) Negative (NEGATIVE) 10/26/20 21:41 Influenza Type B (PCR) Negative (NEGATIVE) 10/26/20 21:41 SARS CoV-2 RNA Rapid MYRON Positive (NEGATIVE) A 10/26/20 21:41 Plan (1) Pneumonia due to 2019 novel coronavirus: Status: Acute Plan: NS AT [facility], LEVAQUIN 500MG IV DAILY, SOLU-MEDROL 80MG IV Q8H, REMDESIVIR 100MG IV DAILY, DUONEBS QID, PULMICORT NEBS BID, LOVENOX 30MG SC BID, PEPCID 20MG PO BID, ZINC SULFATE 220MG PO BID, TRICOR 160MG PO DAILY, AND HER HOME MEDICATIONS WERE RESUMED. (2) Hypoxia: Status: Acute
[2020-10-29] MEDS: SYNTHROID 150 mcg TAB PO SCH (18:16)
[2020-10-29] MEDS ORDERED: PHENERGAN INJ 25 MG IM PRN (18:16)
[2020-10-29] MEDS: SNACK - Diabetic Appropriate PO SCH (21:54)
[2020-10-30] MEDS: ASCORBIC ACID INJ MULTI-DOSE VIAL 1,500 MG in NS 100 ML IV 100 ML IV SCH ×4 (02:43→21:20)
[2020-10-30 05:37] LABS: BASOPHILS % (AUTO) 0.1 % (0.2-1.0); HEMATOCRIT 32.9 % (36.0-47.0); HEMOGLOBIN 10.7 g/dL (12.0-16.0); LYMPHOCYTES # (AUTO) 0.8 X10^3/uL (1.3-2.9); LYMPHOCYTES % (AUTO) 10.7 % (21.0-51.0); MEAN CORPUSCULAR HEMOGLOBIN 26.4 pg (27.0-34.0); MEAN CORPUSCULAR HGB CONC 32.6 g/dL (33.0-35.0); MEAN CORPUSCULAR VOLUME 80.8 fL (80.0-100.0); MEAN PLATELET VOLUME 7.7 fL (7.4-11.0); MONOCYTES # (AUTO) 0.6 x10^3/uL (0.3-0.8); MONOCYTES % (AUTO) 8.5 % (0.0-13.0); NEUTROPHILS # (AUTO) 5.8 x10^3/uL (2.2-4.8); NEUTROPHILS % (AUTO) 80.7 % (42.0-75.0); PLATELET COUNT 343 X10^3/uL (150.0-450.0); RED BLOOD COUNT 4.07 X10^6/uL (3.5-5.4); WHITE BLOOD COUNT 7.1 X10^3/uL (3.6-10.0)
[2020-10-30 05:52] LABS: ALANINE AMINOTRANSFERASE 53 Units/L (12-78); ALBUMIN 2.6 g/dL (3.4-5.0); ALKALINE PHOSPHATASE 35 Units/L (46-116); ASPARTATE AMINO TRANSFERASE 32 Units/L (15-37); BLOOD UREA NITROGEN 16 mg/dL (7-18); CALCIUM 7.9 mg/dL (8.5-10.1); CHLORIDE 108 mmol/L (98-107); COR NA(FOR HYPERGLY) 145 mmol/L (136-145); CREATININE 0.62 mg/dL (0.55-1.02); SODIUM 144 mmol/L (136-145); TOTAL PROTEIN 5.9 g/dL (6.4-8.2); eGFR NON BLACK RACES > 60 (>60)
[2020-10-30] MEDS: SOLU-Medrol 40 MG VIAL IVP SCH (06:06)
[2020-10-30 06:43] LABS: PLATELET MORPHOLOGY COMMENT NORMAL (NORMAL)
--- NOTE | 2020-10-30 07:42 | RAD ---
HISTORYcovidSTUDYAP [id number]/25/2020FINDINGSHeart size is similar and is considered upper normal. There is no change in extent or distribution of bilateral pulmonary infiltrates. No new areas of consolidation, developing edema or pleural effusion identified.IMPRESSIONNo change. Stable appearance of bilateral infiltrates consistent with atypical pneumonia.Electronically signed by: JUAN SANDOVAL (Oct 30, 2020 07:41:12)
[2020-10-30] MEDS: PULMICORT NEB TX 0.5 MG NEB SCH ×2 (09:00→21:20)
[2020-10-30] MEDS: DUONEB 0.5 MG/3 MG (3 mL) NEB SCH ×4 (09:00→21:20)
[2020-10-30] MEDS: LEVAQUIN PREMIX IV 500 MG 500 MG/100 ML BAG IV SCH (09:56)
[2020-10-30] MEDS: GLUCOPHAGE PO SCH ×2 (09:56→21:31)
[2020-10-30] MEDS: TRICOR TAB 160 MG PO SCH (09:58)
[2020-10-30] MEDS: VITAMIN D3 125 mcg (5,000 UNITS) PO SCH (09:58)
[2020-10-30] MEDS: ZINC SULFATE PO SCH ×2 (09:58→21:33)
[2020-10-30] MEDS: TOPROL XL PO SCH (09:59)
[2020-10-30] MEDS: REMDESIVIR 100 MG in NS 250 ML IV 250 ML IV SCH (09:59)
[2020-10-30] MEDS: PEPCID TAB 20 MG PO SCH ×2 (09:59→21:33)
[2020-10-30] MEDS: LOVENOX INJ 30 MG SYR SC SCH ×2 (10:00→21:34)
[2020-10-30] MEDS ORDERED: ROBITUSSIN DM ONE (10:03)
--- NOTE | 2020-10-30 14:28 | PCM.PROG ---
Progress Note Progress Note for Day of Date of Exam: 10/30/20 Subjective Subjective: PT IS A 40 YEAR OLD FEMALE ADMITTED FOR COVID-19 PNEUMONIA AND HYPOXIA (POSITIVE 10/26). SHE IS SITTING UP IN BED, REPORTS FEELING A LITTLE BETTER THIS MORNING COMPARED TO YESTERAY. LABS/IMAGING: WBC 7.1, HGB 10.7, PLT 343, NA 144, K 3.8, CR 0.62, GLUCOSE 141, CRP 19>8.5. CXR:NO SIGNIFICANT INTERVAL CHANGE. HER TREATMENT COURSE INCLUDES: NS AT KVO, LEVAQUIN 500MG IV DAILY, SOLU-MEDROL 80MG IV Q8H, REMDESIVIR 100MG IV DAILY, DUONEBS QID, PULMICORT NEBS BID, LOVENOX 30MG SC BID, PEPCID 20MG PO BID, ZINC SULFATE 220MG PO BID, TRICOR 160MG PO DAILY. SHE IS ON SUPPLEMENTAL O2 OF 3L NASAL CANNULA. ATTEMPT TO WEAN TOLERATED. CONTINUE TO MONITOR CLOSELY AND FOLLOW UP LABS/IMAGING IN THE MORNING. Past Medical Family Social History Past Med/Fam/Surg Hx: No changes since H&P Allergies: Allergies No Known Drug Allergies Allergy (Verified 10/26/20 21:03) Review of Systems ROS: No change since H&P Vital Signs and I&O's Vital Signs: Temperature 97.8 F Pulse Rate [Left] 70 Pulse Rate 61 Respiratory Rate 22 Blood Pressure [Left Arm] 124/64 Blood Pressure 119/74 O2 Sat by Pulse Oximetry 98 Intake and Output: Intake & Output 10/27/20 10/28/20 10/29/20 10/30/20 23:59 23:59 23:59 23:59 Intake Total 2132 / 3 2323 / 2323 1210 / 1210 50 / 50 Balance 2132 / 21323 / 2323 1210 / 1210 50 / 50 Physical Exam Oriented: Normal Eyes: Normal Ear: Normal Nose: Normal Throat: Normal Respiratory: Diminished Cardiovascular: Normal : Normal Auscultation: Bowel Sounds: Normal Tenderness: Normal Skin: Normal Musculoskeletal: Normal Psychiatric: Normal Mood Description: Calm Affect: Normal Speech Pattern: Clear and Appropriate Laboratory and Diagnostics Result Diagrams: 10/30/20 05:00 10/30/20 05:00 Labs: 10/28/20 14:20 Sputum - Expectorated Sputum Sputum Culture - Final 10/28/20 14:20 Sputum - Expectorated Sputum - Final 10/26/20 21:42 Blood Blood Culture - Preliminary 10/26/20 21:36 Blood Blood Culture - Preliminary Laboratory WBC 7.1 X10^3/uL (3.6-10.0) 10/30/20 05:00 RBC 4.07 X10^6/uL (3.5-5.4) 10/30/20 05:00 Hgb 10.7 g/dL (12.0-16.0) L 10/30/20 05:00 Hct 32.9 % (36.0-47.0) L 10/30/20 05:00 MCV 80.8 fL (80.0-100.0) 10/30/20 05:00 MCH 26.4 pg (27.0-34.0) L 10/30/20 05:00 MCHC 32.6 g/dL (33.0-35.0) L 10/30/20 05:00 RDW 16.0 % (11.6-16.5) 10/30/20 05:00 Plt Count 343 X10^3/uL (150.0-450.0) 10/30/20 05:00 Plt Count Comment Adequate (ADEQUATE) 10/30/20 05:00 MPV 7.7 fL (7.4-11.0) 10/30/20 05:00 Neut % (Auto) 80.7 % (42.0-75.0) H 10/30/20 05:00 Lymph % (Auto) 10.7 % (21.0-51.0) L 10/30/20 05:00 [place] % (Auto) 8.5 % (0.0-13.0) 10/30/20 05:00 Eos % (Auto) 0.0 % (0.9-2.9) L 10/30/20 05:00 Baso % (Auto) 0.1 % (0.2-1.0) L 10/30/20 05:00 Neut # (Auto) 5.8 x10^3/uL (2.2-4.8) H 10/30/20 05:00 Lymph # (Auto) 0.8 X10^3/uL (1.3-2.9) L 10/30/20 05:00 [place] # (Auto) 0.6 x10^3/uL (0.3-0.8) 10/30/20 05:00 Eos # (Auto) 0.0 x10^3/uL (0.0-0.2) 10/30/20 05:00 Baso # (Auto) 0.0 X10^3/uL (0.0-0.1) 10/30/20 05:00 Absolute Nucleated RBC 0.1 /100WBC 10/30/20 05:00 Total Counted 100 10/30/20 05:00 Neutrophils % (Manual) 84 % (39-76) H 10/30/20 05:00 Lymphocytes % (Manual) 11 % (13-43) L 10/30/20 05:00 Monocytes % (Manual) 5 % (4-9) 10/30/20 05:00 Plt Morphology Comment Normal (NORMAL) 10/30/20 05:00 RBC Morphology Normal (NORMAL) 10/30/20 05:00 D-Dimer 0.67 ug/ml (0.0-0.57) H* 10/26/20 21:36 Sample Site Rr 10/29/20 04:34 ABG pH 7.440 (7.35-7.45) 10/29/20 04:34 ABG pCO2 38.0 mmHg (35.0-45.0) 10/29/20 04:34 ABG pO2 78.0 mmHg (80.0-100.0) L 10/29/20 04:34 ABG HCO3 25.8 mmol/L (22-26) 10/29/20 04:34 ABG O2 Saturation 96.0 % (90-100) 10/29/20 04:34 ABG Base Excess 1.7 mmol/L (-2.0-2.0) 10/29/20 04:34 Ramirez Test Pos 10/29/20 04:34 A-a Gradient 117.0 mmHg 10/29/20 04:34 FiO2 34.0 10/29/20 04:34 Blood Gas Comments Mariano well ae 10/29/20 04:34 Sodium 144 mmol/L (136-145) 10/30/20 05:00 Corrected Sodium 145 mmol/L (136-145) 10/30/20 05:00 Potassium 3.8 mmol/L (3.5-5.1) 10/30/20 05:00 Chloride 108 mmol/L (98-107) H 10/30/20 05:00 Carbon Dioxide 26.0 mmol/L (21-32) 10/30/20 05:00 BUN 16 mg/dL (7-18) 10/30/20 05:00 Creatinine 0.62 mg/dL (0.55-1.02) 10/30/20 05:00 Est GFR (MDRD) Af Amer > 60 (>60) 10/30/20 05:00 Est GFR (MDRD) Non-Af > 60 (>60) 10/30/20 05:00 Glucose 141 mg/dL (65-99) H 10/30/20 05:00 POC Glucose (mg/dL) 118 mg/dL (65-99) H 10/30/20 12:25 Calcium 7.9 mg/dL (8.5-10.1) L 10/30/20 05:00 Corrected Calcium 9.0 mg/dL (8.5-10.1) 10/30/20 05:00 Magnesium 2.1 mg/dL (1.7-2.9) 10/28/20 04:49 Total Bilirubin 0.20 mg/dL (0.2-1.0) 10/30/20 05:00 AST 32 Units/L (15-37) 10/30/20 05:00 ALT 53 Units/L (12-78) 10/30/20 05:00 Alkaline Phosphatase 35 Units/L (46-116) L 10/30/20 05:00 Creatine Kinase 36 Units/L (26-192) 10/26/20 21:36 CK-MB (CK-2) < 1.0 ng/mL (0-4.0) 10/26/20 21:36 CK/CKMB % Calc 2.8 % (<4) 10/26/20 21:36 Troponin I < 0.02 ng/mL (0-1.5) 10/27/20 04:45 C-Reactive Protein 8.50 mg/L (0-3.0) H 10/30/20 05:00 Total Protein 5.9 g/dL (6.4-8.2) L 10/30/20 05:00 Albumin 2.6 g/dL (3.4-5.0) L 10/30/20 05:00 Globulin 3.3 g/dL (2.5-4.5) 10/30/20 05:00 Albumin/Globulin Ratio 0.8 Ratio (1.1-2.1) L 10/30/20 05:00 TSH 3rd Generation 0.560 uIU/mL (0.358-3.74) 10/29/20 05:17 Influenza Type A (PCR) Negative (NEGATIVE) 10/26/20 21:41 Influenza Type B (PCR) Negative (NEGATIVE) 10/26/20 21:41 SARS CoV-2 RNA Rapid MYRON Positive (NEGATIVE) A 10/26/20 21:41 Plan (1) Pneumonia due to 2019 novel coronavirus: Status: Acute Plan: NS AT KVO, LEVAQUIN 500MG IV DAILY, SOLU-MEDROL 80MG IV Q8H, REMDESIVIR 100MG IV DAILY, DUONEBS QID, PULMICORT NEBS BID, LOVENOX 30MG SC BID, PEPCID 20MG PO BID, ZINC SULFATE 220MG PO BID, TRICOR 160MG PO DAILY, AND HER HOME MEDICATIONS WERE RESUMED. (2) Hypoxia: Status: Acute
[2020-10-30] MEDS: SOLU-Medrol 125 MG VIAL IVP SCH ×2 (15:46→21:34)
[2020-10-30] MEDS: SYNTHROID 150 mcg TAB PO SCH (17:00)
[2020-10-30] MEDS: SNACK - Diabetic Appropriate PO SCH (20:00)
[2020-10-31] MEDS: ASCORBIC ACID INJ MULTI-DOSE VIAL 1,500 MG in NS 100 ML IV 100 ML IV SCH ×2 (03:30→10:03)
[2020-10-31] MEDS: NS 1000 ML 1,000 ML IV SCH (04:27)
[2020-10-31 05:31] LABS: BASOPHILS % (AUTO) 0.1 % (0.2-1.0); HEMATOCRIT 32.4 % (36.0-47.0); HEMOGLOBIN 10.6 g/dL (12.0-16.0); LYMPHOCYTES # (AUTO) 0.9 X10^3/uL (1.3-2.9); LYMPHOCYTES % (AUTO) 10.7 % (21.0-51.0); MEAN CORPUSCULAR HEMOGLOBIN 26.3 pg (27.0-34.0); MEAN CORPUSCULAR HGB CONC 32.7 g/dL (33.0-35.0); MEAN CORPUSCULAR VOLUME 80.5 fL (80.0-100.0); MEAN PLATELET VOLUME 7.7 fL (7.4-11.0); MONOCYTES # (AUTO) 0.6 x10^3/uL (0.3-0.8); MONOCYTES % (AUTO) 7.1 % (0.0-13.0); NEUTROPHILS # (AUTO) 6.6 x10^3/uL (2.2-4.8); NEUTROPHILS % (AUTO) 82.1 % (42.0-75.0); PLATELET COUNT 318 X10^3/uL (150.0-450.0); RED BLOOD COUNT 4.03 X10^6/uL (3.5-5.4)
[2020-10-31 05:45] LABS: ALANINE AMINOTRANSFERASE 54 Units/L (12-78); ALBUMIN 2.6 g/dL (3.4-5.0); ALKALINE PHOSPHATASE 32 Units/L (46-116); ASPARTATE AMINO TRANSFERASE 29 Units/L (15-37); BLOOD UREA NITROGEN 12 mg/dL (7-18); CALCIUM 7.6 mg/dL (8.5-10.1); CARBON DIOXIDE 27.3 mmol/L (21-32); CHLORIDE 106 mmol/L (98-107); COR CA(FOR HYPOALB) 8.7 mg/dL (8.5-10.1); COR NA(FOR HYPERGLY) 143 mmol/L (136-145); CREATININE 0.62 mg/dL (0.55-1.02); SODIUM 142 mmol/L (136-145); TOTAL PROTEIN 5.8 g/dL (6.4-8.2); eGFR NON BLACK RACES > 60 (>60)
[2020-10-31] MEDS: SOLU-Medrol 125 MG VIAL IVP SCH ×2 (06:51→14:35)
[2020-10-31] MEDS: DUONEB 0.5 MG/3 MG (3 mL) NEB SCH (08:40)
[2020-10-31] MEDS: PULMICORT NEB TX 0.5 MG NEB SCH (08:40)
--- NOTE | 2020-10-31 09:25 | RAD ---
HISTORYcovid f/uSTUDYCHEST, 1 [id number] cardiomegaly. Patchy bilateral multifocal pulmonary opacities not significantly changed. No sizable effusion or visible pneumothorax.IMPRESSIONNo significant interval change.Electronically signed by: Thiago Em (Oct 31, 2020 09:23:49)
[2020-10-31 09:26] VITALS: BP 161/95
[2020-10-31] MEDS: LEVAQUIN PREMIX IV 500 MG 500 MG/100 ML BAG IV SCH (10:03)
[2020-10-31] MEDS: TOPROL XL PO SCH (10:04)
[2020-10-31] MEDS: LOVENOX INJ 30 MG SYR SC SCH (10:04)
[2020-10-31] MEDS: VITAMIN D3 125 mcg (5,000 UNITS) PO SCH (10:05)
[2020-10-31] MEDS: REMDESIVIR 100 MG in NS 250 ML IV 250 ML IV SCH (10:05)
[2020-10-31] MEDS: ZINC SULFATE PO SCH (10:05)
[2020-10-31] MEDS: TRICOR TAB 160 MG PO SCH (10:05)
[2020-10-31] MEDS: PEPCID TAB 20 MG PO SCH (10:09)
[2020-10-31] MEDS: GLUCOPHAGE PO SCH (10:24)
--- NOTE | 2020-10-31 12:31 | W.DIS.FURT ---
Summary of Discharge Discharge Summary of Date Date of Exam: 10/31/20 Admission Date Date of Admission: 10/26/20 Admission Diagnosis Patient Problems (Updated 10/27/20 @ 14:51 by Maksim Merritt) Pneumonia due to 2019 novel coronavirus (Acute) U07.1, J12.89 Hypoxia (Acute) R09.02 Hospital Course: PT IS A 40 YEAR OLD FEMALE ADMITTED FOR COVID-19 PNEUMONIA AND HYPOXIA (POSITIVE 10/26). HER HOSPITAL/TREATMENT COURSE INCLUDED: NS AT KVO, LEVAQUIN, SOLU- MEDROL, REMDESIVIR, DUONEBS QID, PULMICORT NEBS BID, LOVENOX PPX, PEPCID, ZINC SULFATE, TRICOR. LABS/IMAGING: WBC 8, HGB 10.6, PLT 318, NA 142, K 3.6, CR 0.62, GLUCOSE 144, CRP 8.5>4. CXR:NO SIGNIFICANT INTERVAL CHANGE. PT RESPONDED WELL TO TREATMENTS. HER OXYGEN REQUIREMENT WAS ABLE TO BE WEANED DOWN TO 2L ON AMBULATORY WALK TEST. ARRANGEMENTS HAVE BEEN MADE FOR HOME OXYGEN. PT WAS DISCHARGED IN STABLE CONDITION. INSTRUCTED TO FOLLOW UP WITH PCP IN 3-5 DAYS. Vital Signs: Vital Signs (72 hours) 10/28/20 16:00 10/28/20 17:00 10/28/20 20:00 Temperature 98.4 F 98.0 F Pulse Rate Pulse Rate [Left] 77 71 Respiratory Rate 20 18 20 Blood Pressure [Left Arm] 116/66 125/68 O2 Sat by Pulse Oximetry 94 L 94 L 10/28/20 21:05 10/29/20 00:00 10/29/20 01:05 Temperature 98.0 F Pulse Rate 81 Pulse Rate [Left] 70 Respiratory Rate 19 12 20 Blood Pressure [Left Arm] 130/69 O2 Sat by Pulse Oximetry 93 L 97 10/29/20 04:00 10/29/20 08:00 10/29/20 09:46 Temperature 98.0 F 97.8 F Pulse Rate 77 Pulse Rate [Left] 67 67 Respiratory Rate 16 24 Blood Pressure [Left Arm] 116/59 118/69 O2 Sat by Pulse Oximetry 95 97 95 10/29/20 12:00 10/29/20 16:00 10/29/20 20:00 Temperature 97.7 F 97.8 F 97.9 F Pulse Rate Pulse Rate [Left] 84 80 71 Respiratory Rate 20 22 20 Blood Pressure [Left Arm] 129/76 130/77 134/72 O2 Sat by Pulse Oximetry 95 96 96 10/29/20 21:30 10/30/20 00:00 10/30/20 04:00 Temperature 97.7 F 97.7 F Pulse Rate 84 Pulse Rate [Left] 80 73 Respiratory Rate 20 22 Blood Pressure [Left Arm] 134/81 122/59 O2 Sat by Pulse Oximetry 98 96 95 10/30/20 08:00 10/30/20 09:00 10/30/20 12:00 Temperature 98.7 F 97.8 F Pulse Rate 61 Pulse Rate [Left] 64 70 Respiratory Rate 20 22 Blood Pressure [Left Arm] 122/71 124/64 O2 Sat by Pulse Oximetry 94 L 93 L 98 10/30/20 16:00 10/30/20 20:00 10/30/20 21:20 Temperature 97.8 F 97.8 F Pulse Rate 69 Pulse Rate [Left] 67 73 Respiratory Rate 20 20 Blood Pressure [Left Arm] 138/65 142/72 O2 Sat by Pulse Oximetry 99 98 98 10/31/20 00:00 10/31/20 04:00 10/31/20 08:00 Temperature 97.4 F L 98 F 98.4 F Pulse Rate Pulse Rate [Left] 79 81 67 Respiratory Rate 18 16 20 Blood Pressure [Left Arm] 135/74 118/62 161/95 O2 Sat by Pulse Oximetry 98 97 96 10/31/20 08:40 Temperature Pulse Rate 71 Pulse Rate [Left] Respiratory Rate Blood Pressure [Left Arm] O2 Sat by Pulse Oximetry 98 Labs: Laboratory Last Values WBC 8.0 X10^3/uL (3.6-10.0) 10/31/20 04:55 RBC 4.03 X10^6/uL (3.5-5.4) 10/31/20 04:55 Hgb 10.6 g/dL (12.0-16.0) L 10/31/20 04:55 Hct 32.4 % (36.0-47.0) L 10/31/20 04:55 MCV 80.5 fL (80.0-100.0) 10/31/20 04:55 MCH 26.3 pg (27.0-34.0) L 10/31/20 04:55 MCHC 32.7 g/dL (33.0-35.0) L 10/31/20 04:55 RDW 16.0 % (11.6-16.5) 10/31/20 04:55 Plt Count 318 X10^3/uL (150.0-450.0) 10/31/20 04:55 Plt Count Comment Adequate (ADEQUATE) 10/30/20 05:00 MPV 7.7 fL (7.4-11.0) 10/31/20 04:55 Neut % (Auto) 82.1 % (42.0-75.0) H 10/31/20 04:55 Lymph % (Auto) 10.7 % (21.0-51.0) L 10/31/20 04:55 [place] % (Auto) 7.1 % (0.0-13.0) 10/31/20 04:55 Eos % (Auto) 0.0 % (0.9-2.9) L 10/31/20 04:55 Baso % (Auto) 0.1 % (0.2-1.0) L 10/31/20 04:55 Neut # (Auto) 6.6 x10^3/uL (2.2-4.8) H 10/31/20 04:55 Lymph # (Auto) 0.9 X10^3/uL (1.3-2.9) L 10/31/20 04:55 [place] # (Auto) 0.6 x10^3/uL (0.3-0.8) 10/31/20 04:55 Eos # (Auto) 0.0 x10^3/uL (0.0-0.2) 10/31/20 04:55 Baso # (Auto) 0.0 X10^3/uL (0.0-0.1) 10/31/20 04:55 Absolute Nucleated RBC 0.1 /100WBC 10/31/20 04:55 Total Counted 100 10/30/20 05:00 Neutrophils % (Manual) 84 % (39-76) H 10/30/20 05:00 Lymphocytes % (Manual) 11 % (13-43) L 10/30/20 05:00 Monocytes % (Manual) 5 % (4-9) 10/30/20 05:00 Plt Morphology Comment Normal (NORMAL) 10/30/20 05:00 RBC Morphology Normal (NORMAL) 10/30/20 05:00 D-Dimer 0.67 ug/ml (0.0-0.57) H* 10/26/20 21:36 Sample Site Rr 10/29/20 04:34 ABG pH 7.440 (7.35-7.45) 10/29/20 04:34 ABG pCO2 38.0 mmHg (35.0-45.0) 10/29/20 04:34 ABG pO2 78.0 mmHg (80.0-100.0) L 10/29/20 04:34 ABG HCO3 25.8 mmol/L (22-26) 10/29/20 04:34 ABG O2 Saturation 96.0 % (90-100) 10/29/20 04:34 ABG Base Excess 1.7 mmol/L (-2.0-2.0) 10/29/20 04:34 Ramirez Test Pos 10/29/20 04:34 A-a Gradient 117.0 mmHg 10/29/20 04:34 FiO2 34.0 10/29/20 04:34 Blood Gas Comments Mariano well ae 10/29/20 04:34 Sodium 142 mmol/L (136-145) 10/31/20 04:55 Corrected Sodium 143 mmol/L (136-145) 10/31/20 04:55 Potassium 3.6 mmol/L (3.5-5.1) 10/31/20 04:55 Chloride 106 mmol/L (98-107) 10/31/20 04:55 Carbon Dioxide 27.3 mmol/L (21-32) 10/31/20 04:55 BUN 12 mg/dL (7-18) 10/31/20 04:55 Creatinine 0.62 mg/dL (0.55-1.02) 10/31/20 04:55 Est GFR (MDRD) Af Amer > 60 (>60) 10/31/20 04:55 Est GFR (MDRD) Non-Af > 60 (>60) 10/31/20 04:55 Glucose 144 mg/dL (65-99) H 10/31/20 04:55 POC Glucose (mg/dL) 127 mg/dL (65-99) H 10/31/20 11:50 Calcium 7.6 mg/dL (8.5-10.1) L 10/31/20 04:55 Corrected Calcium 8.7 mg/dL (8.5-10.1) 10/31/20 04:55 Magnesium 2.1 mg/dL (1.7-2.9) 10/28/20 04:49 Total Bilirubin 0.30 mg/dL (0.2-1.0) 10/31/20 04:55 AST 29 Units/L (15-37) 10/31/20 04:55 ALT 54 Units/L (12-78) 10/31/20 04:55 Alkaline Phosphatase 32 Units/L (46-116) L 10/31/20 04:55 Creatine Kinase 36 Units/L (26-192) 10/26/20 21:36 CK-MB (CK-2) < 1.0 ng/mL (0-4.0) 10/26/20 21:36 CK/CKMB % Calc 2.8 % (<4) 10/26/20 21:36 Troponin I < 0.02 ng/mL (0-1.5) 10/27/20 04:45 C-Reactive Protein 4.10 mg/L (0-3.0) H 10/31/20 04:55 Total Protein 5.8 g/dL (6.4-8.2) L 10/31/20 04:55 Albumin 2.6 g/dL (3.4-5.0) L 10/31/20 04:55 Globulin 3.2 g/dL (2.5-4.5) 10/31/20 04:55 Albumin/Globulin Ratio 0.8 Ratio (1.1-2.1) L 10/31/20 04:55 TSH 3rd Generation 0.560 uIU/mL (0.358-3.74) 10/29/20 05:17 Influenza Type A (PCR) Negative (NEGATIVE) 10/26/20 21:41 Influenza Type B (PCR) Negative (NEGATIVE) 10/26/20 21:41 SARS CoV-2 RNA Rapid MYRON Positive (NEGATIVE) A 10/26/20 21:41 Reason For Visit: COVID PNEUMONIA Discharge Date Discharge Date: 10/31/20 Discharge Diagnosis All Active Problems (Updated 10/27/20 @ 14:51 by Maksim Merritt) Pneumonia due to 2019 novel coronavirus (Acute) Hypoxia (Acute) Plan of Treatment: Continue with present treatment and follow up plan. Pt is to keep follow up appointment as instructed and take medications as ordered. Discharge Medications Discharge Medications: No Known Drug Allergies Allergy (Verified 10/26/20 21:03) CONTINUE taking the following medications albuterol sulfate 2.5 mg INHALATION QID 10/26/20 [History] budesonide 0.5 mg INHALATION BID 10/26/20 [History] esomeprazole magnesium 40 mg PO HS 10/26/20 [History] famotidine 20 mg PO BID 10/26/20 [History] levothyroxine [Synthroid] 300 mcg PO DAILY 10/26/20 [History] metformin 850 mg PO BID 10/26/20 [History] metoprolol succinate 50 mg PO DAILY 10/26/20 [History] ondansetron HCl 4 mg PO Q4H PRN 10/26/20 [History] promethazine 25 mg PO Q4H PRN 10/26/20 [History] tramadol 50 mg PO TID PRN 10/26/20 [History] Vyvanse 50 mg PO DAILY 10/27/20 [History] fluoxetine 20 mg PO DAILY 10/27/20 [History] liothyronine 5 mcg PO BID 10/27/20 [History] tamsulosin 0.4 mg PO DAILY 10/27/20 [History] Follow up and Referral Follow Up: 1 Week Discharge Disposition Discharge Disposition: HOME Discharge Condition: STABLE Discharge Plan Discharge Plan Hospital Course: PT IS A 40 YEAR OLD FEMALE ADMITTED FOR COVID-19 PNEUMONIA AND HYPOXIA (POSITIVE 10/26). HER HOSPITAL/TREATMENT COURSE INCLUDED: NS AT KVO, LEVAQUIN, SOLU- MEDROL, REMDESIVIR, DUONEBS QID, PULMICORT NEBS BID, LOVENOX PPX, PEPCID, ZINC SULFATE, TRICOR. LABS/IMAGING: WBC 8, HGB 10.6, PLT 318, NA 142, K 3.6, CR 0.62, GLUCOSE 144, CRP 8.5>4. CXR:NO SIGNIFICANT INTERVAL CHANGE. PT RESPONDED WELL TO TREATMENTS. HER OXYGEN REQUIREMENT WAS ABLE TO BE WEANED DOWN TO 2L ON AMBULATORY WALK TEST. ARRANGEMENTS HAVE BEEN MADE FOR HOME OXYGEN. PT WAS DISCHARGED IN STABLE CONDITION. INSTRUCTED TO FOLLOW UP WITH PCP IN 3-5 DAYS. Patient Disposition: 01 HOME, SELF-CARE Condition: Stable Health Concerns: Post Hospitalization: new medications and changes needed to prevent readmission or further decline. Pt educated and given instructions on all concerns. Plan of Treatment: Continue with present treatment and follow up plan. Pt is to keep follow up appointment as instructed and take medications as ordered. Prescriptions: Continued albuterol sulfate 2.5 mg /3 mL (0.083 %) solution for nebulization 2.5 mg inhalation QID RF: 0 levothyroxine [Synthroid] 300 mcg tablet 300 mcg PO DAILY RF: 0 metoprolol succinate 50 mg tablet extended release 24 hr 50 mg PO DAILY RF: 0 ondansetron HCl 4 mg tablet 4 mg PO Q4H PRN (Reason: Nausea) RF: 0 metformin 850 mg tablet 850 mg PO BID RF: 0 tramadol 50 mg tablet 50 mg PO TID PRN (Reason: Pain) RF: 0 famotidine 20 mg tablet 20 mg PO BID RF: 0 esomeprazole magnesium 40 mg capsule,delayed release(DR/EC) 40 mg PO HS RF: 0 promethazine 25 mg tablet 25 mg PO Q4H PRN (Reason: Nausea) RF: 0 budesonide 0.5 mg/2 mL suspension for nebulization 0.5 mg inhalation BID RF: 0 liothyronine 5 mcg tablet 5 mcg PO BID RF: 0 tamsulosin 0.4 mg capsule 0.4 mg PO DAILY RF: 0 fluoxetine 20 mg Capsule 20 mg PO DAILY RF: 0 Vyvanse 50 mg capsule 50 mg PO DAILY RF: 0 Discontinued hydroxychloroquine 200 mg tablet 200 mg PO BID RF: 0 methylprednisolone 4 mg tablet 4 mg PO . DIRECTED RF: 0 levofloxacin 500 mg tablet 500 mg PO DAILY RF: 0 Follow ups/Referrals Follow ups/Referrals: QAMAR BAUMAN [Primary Care Provider] - 3 days Instructions Stand Alone Forms: Excuse From Work or School, Precautions for COVID19, Patient Portal, Social Distancing
== END 2020-10-31 14:42 | disposition home or self-care (01) | DRG 177 ==
LOC: ER 20:57 → MED/SURG 10-27
PROVIDERS: ADMIT Internal Medicine; ATTEND Internal Medicine
DX: R09.02 Hypoxemia; E03.8 Other specified hypothyroidism; I10 Essential (primary) hypertension; U07.1 COVID-19; J12.89 Other viral pneumonia